=== PATIENT | male | born 1945 | race Caucasian/White ===

== ENCOUNTER → 2017-02-08 | Outpatient (REF) | payer MEDICARE | LOC: M LAB REF 21:37 | PROVIDERS: ATTEND Physician Assistant | DX: R50.9 Fever, unspecified (principal) ==

== ENCOUNTER 2019-02-26 07:24 | Emergency (ER) | payer MEDICARE ==
[~2019-02-26] VITALS: Ht 172.7 cm; Wt 59.9 kg
[2019-02-26] MEDS ORDERED: CEFU1TAB22 (07:34)
[2019-02-26] MEDS ORDERED: MORPHINE 4 MG/ML 1ML VIAL/SYRINGE (J2270) IV ONE (08:00)
[2019-02-26 08:42] LABS: BASO % 0.4 % (0.0-1.0); EOS % 0.1 % (0.0-3.0); HEMATOCRIT 42.3 % (42.0-52.0); HEMOGLOBIN 14.9 g/dl (13.5-17.5); LYMPH # 0.9 10^3/uL (1.5-4.5); LYMPH % 11.1 % (24.0-44.0); MEAN CORPUSCULAR HEMOGLOBIN 29.9 pg (27.0-33.0); MEAN CORPUSCULAR HGB CONC 35.2 g/dl (32.0-36.5); MEAN CORPUSCULAR VOLUME 84.8 fl (80.0-96.0); MONO # 0.4 10^3/uL (0.0-0.8); MONO % 5.6 % (0.0-5.0); NEUTROPHILS # 6.2 10^3/uL (1.8-7.7); NEUTROPHILS % 80.7 % (36.0-66.0); PLATELET COUNT, AUTOMATED 428 10^3/uL (150-450); RED BLOOD COUNT 4.99 10^6/uL (4.30-6.10); WHITE BLOOD COUNT 7.7 10^3/uL (4.0-10.0)
[2019-02-26 09:07] LABS: ALBUMIN 3.5 GM/DL (3.2-5.2); ALT/SGPT 78 U/L (12-78); BILIRUBIN,DIRECT 0.1 MG/DL (0.0-0.2); BILIRUBIN,TOTAL 0.5 MG/DL (0.2-1.0); BLOOD UREA NITROGEN 20 MG/DL (7-18); CALCIUM LEVEL 9.6 MG/DL (8.8-10.2); CARBON DIOXIDE LEVEL 24 MEQ/L (21-32); CHLORIDE LEVEL 102 MEQ/L (98-107); CREATININE FOR GFR 0.82 MG/DL (0.70-1.30); GLOMERULAR FILTRATION RATE > 60.0 (>42); GLUCOSE, FASTING 110 MG/DL (70-100); LIPASE 75 U/L (73-393); POTASSIUM SERUM 4.5 MEQ/L (3.5-5.1); SODIUM LEVEL 138 MEQ/L (136-145); TOTAL PROTEIN 7.6 GM/DL (6.4-8.2)
[2019-02-26] MEDS ORDERED: ISOVUE-370 76% 100ML VIAL (Q9967) As Ordered ONE (09:18)
--- NOTE | 2019-02-26 10:27 | REP ---
CT ABDOMEN AND PELVIS WITH IV CONTRAST: TECHNIQUE: Axial contrast enhanced images from the lung bases to the pubic symphysis using 100 mL Isovue 370 intravenous contrast material with multiplanar reformations. Bibasilar fibrotic changes are noted. There is a hemangioma in the right lobe of the liver measuring 2.7 cm in diameter. Spleen, adrenals, pancreas, and kidneys are unremarkable. There is no abdominal aortic aneurysm. I see no adenopathy. There is no free air. Mesenteric fat in the anterior pelvis is edematous. There are large bilateral inguinal hernias containing nonobstructed small bowel loops. The herniated mesenteric fat in the inguinal hernias is also edematous. This suggests strangulation and vascular compromise. A Novak catheter is seen in a collapsed urinary bladder which contains a tiny amount of fluid and air. Otherwise no pelvic mass is seen. The appendix is not well visualized, but I do not see evidence of appendicitis. IMPRESSION: Large bilateral inguinal hernias contain nonobstructed small bowel. However, the mesenteric fat in the anterior pelvis and in the bilateral inguinal hernias is edematous and appears inflamed suggesting strangulation and vascular compromise. Electronically Signed by Bernabe Clements MD 02/27/2019 09:03 A
[2019-02-26 12:00] VITALS: BP 118/57
[2019-02-26] MEDS ORDERED: FLOM0.4C39 PO (12:22)
--- NOTE | 2019-02-28 14:01 | ED PDOC ---
Post-Departure Follow-Up jessica lopez, hadley faxed formal report of ct abd/p for fu Malina Chambers MD February 28, 2019 14:01
== END 2019-02-26 12:49 | disposition home or self-care (01) ==
LOC: M ED 07:24
DX: K40.20 Bilateral inguinal hernia, without obstruction or gangrene, not specified as recurrent (principal); R33.9 Retention of urine, unspecified
CPT/HCPCS: 36415; 51702; 74177; 80048; 80076; 81001; 83605; 83690; 85025; 93041; 96374; 99285; J2270; Q9967

== ENCOUNTER → 2019-03-07 | Outpatient (CLI) | payer MEDICARE ==
[~2019-03-07] MED LIST: CEFU1TAB22; FLOM0.4C39 PO; MULTCAP PO; OXYB5TAB10 PO
[2019-03-07 18:23] LABS: CHOLESTEROL LEVEL 222 MG/DL (<200); CHOLESTEROL RISK RATIO 3.313 (<5); HDL CHOLESTEROL 67 MG/DL (>40); LDL CHOLESTEROL 140 MG/DL (<100); NON-HDL-C 155 MG/DL; TRIGLYCERIDES LEVEL 75 MG/DL (<150)
[2019-03-07 18:26] LABS: HEMOGLOBIN A1c 5.4 %
[2019-03-08 14:45] LABS: HEPATITIS C VIRUS ABY INDEX < 0.0 INDEX (<0.8)
== END ==
LOC: M LAB 17:12
PROVIDERS: ATTEND Hospitalist
DX: Z01.810 Encounter for preprocedural cardiovascular examination (principal); Z13.1 Encounter for screening for diabetes mellitus; Z11.59 Encounter for screening for other viral diseases
CPT/HCPCS: 36415; 80061; 83036; 86803; 93005; G0404; G0463

== ENCOUNTER 2019-03-22 10:48 | Day surgery (SDC) | payer MEDICARE ==
[~2019-03-22] VITALS: Ht 172.7 cm; Wt 57.6 kg
[~2019-03-22 10:48] MED LIST changes: +LIDOCAINE 1% MDV 20ML VIAL SQ PRN; +LR 1,000 ML IV ONE; +ceFAZolin SOD 1 GM in D5W MINI-BAG PLUS 50 ML IV ONE
[2019-03-22] MEDS ORDERED: PROPOFOL 200 MG/20 ML VIAL As Ordered ONE (10:49)
[2019-03-22] MEDS ORDERED: ROCURONIUM BROMIDE 50 MG/5 ML VIAL As Ordered ONE (10:49)
[2019-03-22] MEDS ORDERED: LIDOCAINE 2% INJ 100 MG/5 ML SDV (FOR ANES.) As Ordered ONE (10:49)
[2019-03-22] MEDS ORDERED: KETOROLAC 60 MG/2 ML VIAL (J1885) As Ordered ONE (10:55)
[2019-03-22] MEDS ORDERED: ONDANSETRON 4MG/2ML VIAL (J2405) As Ordered ONE (10:55)
[2019-03-22] MEDS ORDERED: dexameTHASONE 4 MG/ML 1ML VIAL (J1100) As Ordered ONE (10:55)
[2019-03-22] MEDS ORDERED: MIDAZOLAM INJ 2 MG/2 ML VIAL (J2250) As Ordered ONE (11:02)
[2019-03-22] MEDS ORDERED: fentaNYL 250 MCG/5 ML INJECTION (J3010) As Ordered ONE (11:02)
[2019-03-22] MEDS ORDERED: KETAMINE HCL 200 MG/20 ML VIAL As Ordered ONE (11:06)
[2019-03-22] MEDS ORDERED: BUPIVACAINE/EPIN 0.25% 30 ML VIAL As Ordered ONE (11:50)
[2019-03-22] MEDS ORDERED: BUPIVACAINE LIPOSOME/PF 1.3% 20ML VIAL (13.3MG/ML)(EXPAREL)(C9290 PER1MG) As Ordered ONE (11:50)
--- NOTE | 2019-03-22 15:44 | RO ---
DATE OF PROCEDURE: 03/22/2019 PREOPERATIVE DIAGNOSIS: Bilateral inguinal hernias. POSTOPERATIVE DIAGNOSIS: Bilateral inguinal hernias (indirect). OPERATIVE PROCEDURE: Robotic-assisted bilateral inguinal hernia repair with ProGrip mesh. SURGEON: Narinder Garcia MD TIE TAMPER: Jasmin Stout (provided instrument exchange, trocar placement and trocar abdominal wall closure and hernia/mesh insertion. ANESTHESIA: General endotracheal. ESTIMATED BLOOD LOSS: Minimal. FLUIDS: Crystalloid. BRIEF PROCEDURE SUMMARY: The patient was brought to the operating room and was given general anesthesia. After adequate anesthesia and preoperative antibiotics were given the patient was prepped and draped in sterile fashion. Next, a supraumbilical incision was placed. The supraumbilical incision was made with the skin knife. Blunt dissection was carried down to fascia. Veress needle placed into the abdominal cavity, insufflated to 15 mm of pressure and a dilating 8 mm trocar was placed, two lateral 8 mm trocars were placed. The patient was placed in steep Trendelenburg and both hernias were reduced. The peritoneum was taken down on the right-hand side and mobilized. The hernia sac was so large, however, it went all the way down into the scrotum and after I was able to get down probably three-quarters of the way down into the scrotum it became much more adherent to the surrounding tissue and was oozing a little bit and thus I felt that it was more prudent to proximally transect the hernia sac, about the midportion of the hernia sac. This was performed and was mobilized off the cord structures. It still was quite thickened and inflamed in this area, but eventually I was able to get this mobilized off the cord structures, off the vessels and Corey's ligament was well identified. Pubis was well identified. Next, the left inguinal area was dissected out in much the same manner and had much less inflammatory changes and thickened peritoneum compared to the right side and this thinned out peritoneum was more easily mobilized out of the pelvis and/out of the scrotal canal and once this was mobilized adequately, it was mobilized off the vessels and Corey's was well visualized on this side. The mesh was placed in the left-hand side after cutting it to the appropriate position, pressing it into position and closing the peritoneum overlying this with a #3-0 V-Loc suture. The right side, however, had the oozing along the cord structure and the vessels and given that it was difficult to mobilize his back into the abdomen I put some Teofilo down the canal and into the hernia sac distally and then no active bleeding was appreciated and the mesh was cut to the appropriate size, placed in the preperitoneal space and the peritoneum closed over the top of this. The peritoneal defect was imbricated at the internal ring/the hernia sac itself and then closed with a running #3-0 V-Loc as well. Next, all trocars were removed under direct visualization. #4-0 Vicryl was used to close all incisions. Steri-Strips and a dry sterile dressing was applied. The patient was awakened, extubated, and brought to the recovery room awake, alert, and hemodynamically stable. Sponge and needle counts correct times two.
[2019-03-22] MEDS ORDERED: PERCOCET 5MG/325MG TAB PO PRN (16:00)
[2019-03-22] MEDS ORDERED: LR 1,000 ML IV SCH ×2 (16:00)
[2019-03-22] MEDS ORDERED: ONDANSETRON 4MG/2ML VIAL (J2405) IV PRN ×2 (16:00→16:15)
[2019-03-22] MEDS: fentaNYL 100 MCG/2 ML INJECTION (J3010) IV PRN ×4 (16:05→16:20)
[2019-03-22] MEDS ORDERED: NORCO, ANEXSIA 5/325MG TABLET (HYDROcodone/ACETAMINOPHEN) PO PRN (16:15)
[2019-03-22] MEDS ORDERED: oxyCODONE 5MG TAB As Ordered ONE (16:39)
[2019-03-22] MEDS ORDERED: oxyCODONE 5MG TAB PO PRN (16:45)
[2019-03-22] MEDS ORDERED: PROPARACAINE 0.5% OPHTH SOL 15ML As Ordered ONE (18:46)
[2019-03-22] MEDS ORDERED: PROPARACAINE 0.5% OPHTH SOL 15ML OD SCH (19:15)
[2019-03-22 19:25] VITALS: BP 112/62
[2019-03-23] MEDS ORDERED: DESFLURANE 240 ML INHALANT As Ordered ONE (07:29)
[2019-03-23] MEDS ORDERED: SEVOFLURANE INHAL SOLN 250 ML BTL As Ordered ONE (07:31)
== END 2019-03-22 17:40 | disposition home or self-care (01) ==
LOC: M SDC 10:48
PROVIDERS: ATTEND Surgery
DX: K40.20 Bilateral inguinal hernia, without obstruction or gangrene, not specified as recurrent (principal); N40.0 Benign prostatic hyperplasia without lower urinary tract symptoms; R33.9 Retention of urine, unspecified; Z79.899 Other long term (current) drug therapy
CPT/HCPCS: 49650; C1781; J0690; J1100; J1885; J2250; J2405; J3010

== ENCOUNTER → 2019-07-15 | Outpatient (CLI) | payer MEDICARE ==
[~2019-07-15] MED LIST changes: -LIDOCAINE 1% MDV 20ML VIAL SQ PRN; -LR 1,000 ML IV ONE; -ceFAZolin SOD 1 GM in D5W MINI-BAG PLUS 50 ML IV ONE
== END ==
LOC: M SMT 09:59
PROVIDERS: ATTEND Nurse Practitioner Family
DX: Z12.5 Encounter for screening for malignant neoplasm of prostate (principal)
CPT/HCPCS: 36415; 51798; G0103; G0463

== ENCOUNTER → 2019-10-15 | Outpatient (CLI) | payer MEDICARE ==
[2019-10-16 14:13] LABS: PSA % FREE 17.8 % (.); PSA FREE 0.96 ng/mL; PSA TOTAL 5.4 ng/mL (0.0-4.0)
== END ==
LOC: M PLALAB 08:58
PROVIDERS: ATTEND Nurse Practitioner Family
DX: R97.20 Elevated prostate specific antigen [PSA] (principal)

== ENCOUNTER → 2019-10-22 | Outpatient (REF) | payer MEDICARE | LOC: M SMT 13:15 | PROVIDERS: ATTEND Nurse Practitioner Family | DX: R97.20 Elevated prostate specific antigen [PSA] (principal); Z79.899 Other long term (current) drug therapy | CPT/HCPCS: 51798; 87086; G0463 ==

== ENCOUNTER → 2019-11-05 | Outpatient (CLI) | payer MEDICARE ==
--- NOTE | 2019-11-06 07:28 | REPPI ---
TRANSRECTAL ULTRASOUND PROSTATE WITH ULTRASOUND GUIDANCE FOR PROSTATE BIOPSY: Transrectal ultrasound prostate performed. Prostate measures 5.0 x 3.8 x 5.1 cm. There is diffuse heterogeneity of echotexture. Volume is 50.7 mL. Scattered echogenic calcifications and tiny cystic changes are seen. Hypoechoic nodular area at the left apex measures 7 x 4 x 5 mm. Seminal vesicles appear symmetrical and unremarkable. Ultrasound guidance was provided for Dr. Beard who performed ultrasound-guided biopsy of the prostate. Electronically Signed by Bernabe Clements MD 11/06/2019 10:34 P
== END ==
LOC: M SMT PRO 10:19
PROVIDERS: ATTEND Urology
DX: R97.20 Elevated prostate specific antigen [PSA] (principal)
CPT/HCPCS: 55700; 76872; 76942; G0416

== ENCOUNTER → 2020-04-30 | Outpatient (CLI) | payer MEDICARE | LOC: M PLALAB 08:23 | PROVIDERS: ATTEND Urology | DX: R97.20 Elevated prostate specific antigen [PSA] (principal) ==

== ENCOUNTER → 2020-07-16 | Outpatient (CLI) | payer MEDICARE ==
[2020-07-17 23:07] LABS: PSA TOTAL 3.2 ng/mL (0.0-4.0)
== END ==
LOC: M PLALAB 08:39
PROVIDERS: ATTEND Nurse Practitioner Family
DX: R97.20 Elevated prostate specific antigen [PSA] (principal)

== ENCOUNTER → 2021-07-28 | Outpatient (CLI) | payer MEDICARE | LOC: M PLALAB 12:37 | PROVIDERS: ATTEND Nurse Practitioner Women's Health | DX: Z12.5 Encounter for screening for malignant neoplasm of prostate (principal) | CPT/HCPCS: 36415; G0103 ==

== ENCOUNTER → 2021-11-10 | Outpatient (CLI) | payer MEDICARE | LOC: M PLALAB 08:53 | PROVIDERS: ATTEND Nurse Practitioner Women's Health | DX: R97.20 Elevated prostate specific antigen [PSA] (principal) ==

== ENCOUNTER → 2022-03-01 | Outpatient (CLI) | payer MEDICARE | LOC: M PLALAB 08:49 | PROVIDERS: ATTEND Nurse Practitioner Women's Health | DX: R97.20 Elevated prostate specific antigen [PSA] (principal) ==

== ENCOUNTER → 2022-09-02 | Outpatient (CLI) | payer MEDICARE | LOC: M LAB 09:10 | PROVIDERS: ATTEND Nurse Practitioner Women's Health | DX: R97.20 Elevated prostate specific antigen [PSA] (principal) ==

== ENCOUNTER → 2023-03-22 | Outpatient (CLI) | payer MEDICARE | LOC: M PLALAB 09:44 | PROVIDERS: ATTEND Physician Assistant | DX: R97.20 Elevated prostate specific antigen [PSA] (principal) ==

== ENCOUNTER → 2024-03-19 | Outpatient (CLI) | payer MEDICARE ==
[~2024-03-19] MED LIST changes: -OXYB5TAB10 PO; +OXYB5TAB14 PO
== END ==
LOC: M PLALAB 08:49
PROVIDERS: ATTEND Physician Assistant
DX: R97.20 Elevated prostate specific antigen [PSA] (principal)

== ENCOUNTER → 2024-09-12 | Outpatient (CLI) | payer MEDICARE | LOC: M PLALAB 09:30 | PROVIDERS: ATTEND Physician Assistant | DX: R97.20 Elevated prostate specific antigen [PSA] (principal) ==

== ENCOUNTER → 2025-09-22 | Outpatient (CLI) | payer MEDICARE ==
[~2025-09-22] MED LIST changes: -FLOM0.4C39 PO; +TAMS-18 PO
== END ==
LOC: M PLALAB 09:38
PROVIDERS: ATTEND Physician Assistant
DX: R97.20 Elevated prostate specific antigen [PSA] (principal)